=== PATIENT | male | born 1990 | race Caucasian/White ===

== ENCOUNTER 2017-11-21 12:21 | Emergency (ER) | payer OTHER, BC ==
[2017-11-21 12:22] VITALS: BMI 31.0
[2017-11-21 12:26] VITALS: PULSE 65; RESP 18; O2SAT 100
[2017-11-21 12:28] VITALS: BP 139/63
--- NOTE | 2017-11-21 12:41 | ED PDOC ---
Upper Extremity Pain/Injury Time Seen by Provider: 11/21/17 12:29 Chief Complaint (Nursing): Upper Extremity Problem/Injury Chief Complaint (Provider): Left Wrist Pain History Per: Patient History/Exam Limitations: no limitations Additional Complaint(s): 27 year old right hand dominant male presents to the ED for an evaluation of injury to left wrist. Patient states his left wrist was crushed between 2 doors. Patient reports throbbing pain to affected area with no numbness or tingling. Injury occurred about 30 minutes prior to arrival. PMD: does not remember name Past Medical History Reviewed: Historical Data, Nursing Documentation, Vital Signs Vital Signs: Last Vital Signs Temp 98.5 F 11/21/17 12:23 Pulse 65 11/21/17 12:23 Resp 18 11/21/17 12:23 BP 139/63 11/21/17 12:28 Pulse Ox 100 11/21/17 12:23 - Medical History PMH: No Chronic Diseases - Surgical History Surgical History: No Surg Hx - Family History Family History: States: No Known Family Hx - Living Arrangements Living Arrangements: With Family - Social History Current smoker - smoking cessation education provided: Yes (cigars) Alcohol: None Drugs: Denies - Home Medications Home Medications: Ambulatory Orders Medication Instructions Recorded Ibuprofen [Motrin] 600 mg PO TID PRN #30 tab 04/05/16 diaZEpam [Valium] 5 mg PO Q8 PRN #12 tab 04/05/16 traMADol [Ultram] 50 mg PO Q8 PRN #12 tab 04/05/16 - Allergies Allergies/Adverse Reactions: Allergies Allergy/AdvReac Type Severity Reaction Status Date / Time No Known Allergies Allergy Verified 11/21/17 12:23 Review of Systems ROS Statement: Except As Marked, All Systems Reviewed And Found Negative Musculoskeletal: Positive for: Arm Pain (left wrist injury) Neurological: Negative for: Numbness Physical Exam - Reviewed Nursing Documentation Reviewed: Yes Vital Signs Reviewed: Yes - Physical Exam Appears: Positive for: Well, Non-toxic, No Acute Distress Head Exam: Positive for: ATRAUMATIC, NORMAL INSPECTION, NORMOCEPHALIC Skin: Positive for: Normal Color. Negative for: Rash Eye Exam: Positive for: Normal appearance Neck: Positive for: Normal Extremity: Positive for: Normal ROM (of left wrist with pain), Tenderness (left wrist diffusely with no snuff box tenderness), Capillary Refill (normal to left hand), Swelling (left wrist dorsal aspect) Neurologic/Psych: Positive for: Alert, Oriented (x3) - ECG O2 Sat by Pulse Oximetry: 100 (RA) Pulse Ox Interpretation: Normal - Other Rad left wrist x-ray X-Ray: Interpreted by Me, Viewed By Me X-Ray Interpretation: no fx, no dis Medical Decision Making Medical Decision Making: Time: 1234 Initial Impression: 27 year old male with left wrist injury Initial Plan: --Motrin 600mg --Wrist, Left 3 Views [RAD] Patient aware of x-ray results. Velcro splint applied. Patient was instructed to continue with ibuprofen for pain, to ice and elevate affected area and avoid heavy lifting. Orthopedic referral provided for follow-up. Scribe Attestation: Documented by Gricel Grigsby, acting as a scribe for Leanna Mayes PA-C. Provider Scribe Attestation: All medical record entries made by the Scribe were at my direction and personally dictated by me. I have reviewed the chart and agree that the record accurately reflects my personal performance of the history, physical exam, medical decision making, and the department course for this patient. I have also personally directed, reviewed, and agree with the discharge instructions and disposition. Procedures - Splinting Location: left wrist Pre-Made Type: velcro Pre-Proc Neuro Vasc Exam: normal Post-Proc Neuro Vasc Exam: normal Disposition - Clinical Impression Clinical Impression: Wrist sprain Counseled Patient/Family Regarding: Studies Performed, Diagnosis, Need For Followup - Disposition Referrals: Anselmo Garcia III, MD [Staff Provider] - Disposition Time: 13:13 Condition: STABLE Additional Instructions: Ice, rest and elevate affected area. Take 3 [id number] Advil every 6 hours for pain relief. Follow-up as needed with orthopedist. Instructions: Wrist Sprain (DC) Forms: [employer] (Amharic), [facility] ED School/Work Excuse
[2017-11-21 13:20] VITALS: TEMP 98.2
--- NOTE | 2017-11-21 15:10 | RAD ---
PROCEDURE: Left Wrist Radiographs. HISTORY: trauma COMPARISON: None. FINDINGS: BONES: No acute fracture or destructive bony lesion identified. JOINTS: No dislocation or subluxation appreciated. SOFT TISSUES: Normal. OTHER FINDINGS: None. IMPRESSION: Normal left wrist radiographs.
== END 2017-11-21 13:20 | disposition home or self-care (01) ==
LOC: H.ER 12:21
DX: S63.502A Unspecified sprain of left wrist, initial encounter (principal); W23.0XXA Caught, crushed, jammed, or pinched between moving objects, initial encounter; F17.290 Nicotine dependence, other tobacco product, uncomplicated